=== PATIENT | female | born 1990 | race Caucasian/White ===

== ENCOUNTER → 2019-10-08 | Outpatient (CLI) | payer BC ==
[2019-10-12 12:37] LABS: VARICELLA ZOSTER IGG AB 1306 index (Immune >16)
== END ==
LOC: OD 14:54
PROVIDERS: ATTEND Family Medicine
DX: Z00.00 Encounter for general adult medical examination without abnormal findings (principal); Z11.1 Encounter for screening for respiratory tuberculosis
CPT/HCPCS: 36415; 86317; 86480; 86735; 86762; 86765; 86787